=== PATIENT | male | born 1995 | race African-American/Black ===

== ENCOUNTER 2018-04-12 15:17 | Emergency (ER) | payer BC ==
[2018-04-12] MEDS ORDERED: Ibuprofen 200 MG TAB ONE ×2 (15:43→15:46)
--- NOTE | 2018-04-12 16:06 | RAD ---
LEFT ANKLE THREE VIEWS: History: Pain. Basketball injury. Comparison: 08-01-15 FINDINGS: Lateral soft tissue swelling. Joint spaces are preserved. No fracture. IMPRESSION: No fracture. Soft tissue swelling is present. POS: [facility]
== END 2018-04-12 16:45 | disposition home or self-care (01) ==
LOC: ERS 15:17
DX: S93.402A Sprain of unspecified ligament of left ankle, initial encounter (principal); X50.9XXA Other and unspecified overexertion or strenuous movements or postures, initial encounter; Y93.67 Activity, basketball

== ENCOUNTER 2019-02-13 10:57 | Emergency (ER) | payer BC ==
--- NOTE | 2019-02-13 11:43 | RAD ---
EXAM: Chest 2 views: HISTORY: Chest palpitations COMPARISON: None. FINDINGS: There is a normal-sized cardiomediastinal silhouette. There is no evidence of consolidation, mass, or pleural effusion. The bones are unremarkable. IMPRESSION: No evidence of acute cardiopulmonary disease
== END 2019-02-13 12:45 | disposition home or self-care (01) ==
LOC: ERS 10:57
DX: T43.611A Poisoning by caffeine, accidental (unintentional), initial encounter (principal); R00.2 Palpitations
CPT/HCPCS: 71046; 93005